=== PATIENT | female | born 1990 | race Caucasian/White ===

== ENCOUNTER 2020-11-24 17:30 | Emergency (ER) | payer OTHER, SELFPAY ==
--- NOTE | ~2020-11-24 | US_ITS ---
EXAMINATION: TRANSABDOMINAL AND TRANSVAGINAL PELVIC ULTRASOUND CLINICAL INFORMATION: Pelvic pain. COMPARISON: None. TECHNIQUE: Transabdominal and transvaginal ultrasound of the pelvis was performed using grayscale and color Doppler imaging techniques. FINDINGS: The uterus is anteverted and normal in size measuring 8.1 x 4.2 x 5.8 cm with a smooth surface contour and no discrete mass. The endometrial stripe is normal in thickness measuring 0.7 cm. There is no abnormal dilation of the uterine cavity. Small echogenic foci within the endometrial cavity are noted demonstrating vascularity, likely reflecting multiple polyps. These measure up to 5 mm (series US #1: Image 48/75). The right ovary is normal in size measuring 2.9 x 2.6 x 2.1 and demonstrates internal arterial and venous blood flow. The left ovary is normal in size measuring 2.3 x 2.1 x 1.9 and demonstrates internal arterial and venous blood flow. Functional cyst measures 1.6 x 1.2 x 1.5 cm. There is no pelvic free fluid. US/US transvaginal IMPRESSION: Functional left ovarian cyst. Tiny subcentimeter echogenic foci in the endometrial cavity with vascularity likely reflecting multiple polyps
--- NOTE | ~2020-11-24 | US_ITS ---
EXAMINATION: TRANSABDOMINAL AND TRANSVAGINAL PELVIC ULTRASOUND CLINICAL INFORMATION: Pelvic pain. COMPARISON: None. TECHNIQUE: Transabdominal and transvaginal ultrasound of the pelvis was performed using grayscale and color Doppler imaging techniques. FINDINGS: The uterus is anteverted and normal in size measuring 8.1 x 4.2 x 5.8 cm with a smooth surface contour and no discrete mass. The endometrial stripe is normal in thickness measuring 0.7 cm. There is no abnormal dilation of the uterine cavity. Small echogenic foci within the endometrial cavity are noted demonstrating vascularity, likely reflecting multiple polyps. These measure up to 5 mm (series US #1: Image 48/75). The right ovary is normal in size measuring 2.9 x 2.6 x 2.1 and demonstrates internal arterial and venous blood flow. The left ovary is normal in size measuring 2.3 x 2.1 x 1.9 and demonstrates internal arterial and venous blood flow. Functional cyst measures 1.6 x 1.2 x 1.5 cm. There is no pelvic free fluid. US/US pelvic complete IMPRESSION: Functional left ovarian cyst. Tiny subcentimeter echogenic foci in the endometrial cavity with vascularity likely reflecting multiple polyps
[2020-11-24 17:42] VITALS: BP 128/79; PULSE 89; RESP 16; TEMP 36.5; O2SAT 100; BMI 28.3
[2020-11-24 18:31] VITALS: BP 133/85; PULSE 81; RESP 16; TEMP 37.1; O2SAT 99
--- NOTE | 2020-11-24 19:40 | ED.ABDPAIN ---
HPI - Abdominal Pain General Chief Complaint: Abdominal Pain <Fifi Pineda NP - Last Filed: 11/24/20 21:25> Stated Complaint: Lower abdominal pain <BHAKTI Whitaker Last Filed: 11/24/20 21:25> Time Seen by Provider: 11/24/20 19:07 <Fifi Pineda NP - Last Filed: 11/24/20 21:25> Source: patient <Fifi Pineda NP - Last Filed: 11/24/20 21:25> Mode of arrival: ambulatory <BHAKTI Whitaker Last Filed: 11/24/20 21:25> Limitations: no limitations <BHAKTI Whitaker Last Filed: 11/24/20 21:25> History of Present Illness HPI narrative: [age] year old female previously healthy here with complaints of lower abdominal cramping left greater than right x2 weeks. No urinary symptoms, vaginal discharge, diarrhea, vomiting, fever, chills. Patient tested for STIs 1 week ago and negative. Patient is sexually active with 1 male partner. She is not on contraception, menses 9 days late this month. <Fifi Pineda NP - Last Filed: 11/24/20 21:25> Related Data Home Medications: Previous Rx's Medication Instructions Recorded ibuprofen 600 mg PO Q8H PRN #10 tab 11/24/20 <BHAKTI Whitaker Last Filed: 11/24/20 21:25> Allergies/Adverse Reactions: Allergies Allergy/AdvReac Type Severity Reaction Status Date / Time bacitracin [From CORTISPORIN] Allergy Severe SWELLING Unverified 04/05/20 19:13 hydrocortisone Allergy Severe SWELLING Unverified 04/05/20 19:13 [From CORTISPORIN] neomycin [From CORTISPORIN] Allergy Severe SWELLING Unverified 04/05/20 19:13 polymyxin B Allergy Severe SWELLING Unverified 04/05/20 19:13 [From CORTISPORIN] <BHAKTI Whitaker Last Filed: 11/24/20 21:25> Review of Systems Review of Systems Yes all other systems are reviewed and are negative <BHAKTI Whitaker Last Filed: 11/24/20 21:25> Constitutional: Reports no additional constitutional complaints, Denies body ache(s), Denies chills, Denies fever(s), Denies headache(s) and Denies weakness <Fifi Pineda NP - Last Filed: 11/24/20 21:25> Eyes: Reports no additional eye complaints and Denies change in vision <Fifi Pineda NP - Last Filed: 11/24/20 21:25> Reports system reviewed and no additional complaints, except as documented, Denies dizziness, Denies headache(s), Denies nasal congestion, Denies nasal discharge and Denies neck pain <Fifi Pineda NP - Last Filed: 11/24/20 21:25> Cardiovascular: Reports no additional cardiovascular complaints, Denies chest pain, Denies leg edema and Denies dyspnea <Fifi Pineda NP - Last Filed: 11/24/20 21:25> Respiratory: Reports no additional respiratory complaints, Denies cough and Denies dyspnea <Fifi Pineda NP - Last Filed: 11/24/20 21:25> Gastrointestinal: Reports no additional gastrointestinal complaints, Reports abdominal pain, Denies diarrhea, Denies nausea and Denies vomiting <Fifi Pineda NP - Last Filed: 11/24/20 21:25> Genitourinary: Reports no additional female genitourinary complaints, Denies hematuria, Denies dysuria, Denies pelvic pain, Denies flank pain, Denies urinary incontinence and Denies vaginal discharge <Fifi Pineda NP - Last Filed: 11/24/20 21:25> Musculoskeletal: Reports no additional musculoskeletal complaints, Denies back pain, Denies arthralgias, Denies joint swelling, Denies neck pain, Denies numbness and Denies tingling <Fifi Pineda NP - Last Filed: 11/24/20 21:25> Skin/Breast: Reports system reviewed and no additional complaints, except as docu and Denies rash <Fifi Pineda NP - Last Filed: 11/24/20 21:25> Reports system reviewed and no additional complaints, except as documented, Denies Abnormal speech present, Denies dizziness, Denies headache(s), Denies numbness, Denies tingling and Denies weakness <Fifi Pineda NP - Last Filed: 11/24/20 21:25> Physical Exam Vital Signs: Vital Signs: Last Vital Signs Temp 98.8 F 11/24/20 18:31 Pulse 65 11/24/20 21:38 Resp 16 11/24/20 21:38 BP 128/79 11/24/20 21:38 Pulse Ox 98 11/24/20 21:38 Body Mass Index 28.3 <Fifi Pineda NP - Last Filed: 11/24/20 21:25> Vital Signs: Last Vital Signs Temp 98.8 F 11/24/20 18:31 Pulse 65 11/24/20 21:38 Resp 16 11/24/20 21:38 BP 128/79 11/24/20 21:38 Pulse Ox 98 11/24/20 21:38 Body Mass Index 28.3 <Alicja Retana MD - Last Filed: 11/24/20 22:35> Const: General: cooperative, healthy appearing, comfortable and no acute distress <Fifi Pineda NP - Last Filed: 11/24/20 21:25> Orientation/consciousness: patient oriented x3 <Fifi Pineda NP - Last Filed: 11/24/20 21:25> Limitations: no limitations <Fifi Pineda NP - Last Filed: 11/24/20 21:25> HENMT: Head: Yes normal to inspection <Fifi Pineda NP - Last Filed: 11/24/20 21:25> Ears: hearing grossly normal bilaterally <Fifi Pineda NP - Last Filed: 11/24/20 21:25> General nose exam: Normal external nose present <Fifi Pineda NP - Last Filed: 11/24/20 21:25> Face and sinus: Yes normal facial exam <Fifi Pineda NP - Last Filed: 11/24/20 21:25> Mouth: Normal oral and palatal mucosa present <Fifi Pineda NP - Last Filed: 11/24/20 21:25> Throat: Yes posterior oropharynx normal <Fifi Pineda NP - Last Filed: 11/24/20 21:25> Eyes: General: appearance normal, both eyes and all related structures <Fifi Pineda NP - Last Filed: 11/24/20 21:25> Pupils: Equal, round and reactive pupils present <Fifi Pineda NP - Last Filed: 11/24/20 21:25> Neck: Neck: Yes normal visual inspection <Fifi Pineda NP - Last Filed: 11/24/20 21:25> Chest: Chest palpation & inspection: normal inspection of the chest <Fifi Pineda NP - Last Filed: 11/24/20 21:25> Resp: Effort & Inspection: normal respiratory effort <Fifi Pineda NP - Last Filed: 11/24/20 21:25> Auscultation: clear to auscultation bilaterally <Fifi Pineda NP - Last Filed: 11/24/20 21:25> Cardio: Rate: regular rate <Fifi Pineda NP - Last Filed: 11/24/20 21:25> Rhythm: regular rhythm <Fifi Pineda NP - Last Filed: 11/24/20 21:25> Peripheral pulses: Peripheral pulses 2+ throughout <Fifi Pineda NP - Last Filed: 11/24/20 21:25> GI: Inspection: Yes normal to inspection <Fifi Pineda NP - Last Filed: 11/24/20 21:25> Palpation (GI): Soft to palpation and Tenderness to palpation present (GI) (mild left pelvic, no rebound or guarding ) <Fifi Pineda NP - Last Filed: 11/24/20 21:25> Auscultation: normal bowel sounds <Fifi Pineda NP - Last Filed: 11/24/20 21:25> Back/Spine/Pelvis: Thoracic/Lumbar Spine: thoracic and lumbar spine normal to inspection <Fifi Pineda NP - Last Filed: 11/24/20 21:25> Skin: General skin exam: no rashes or lesions noted <Fifi Pineda NP - Last Filed: 11/24/20 21:25> Neuro: General: patient oriented x3, no focal motor deficits and normal sensation to monofilament <Fifi Pineda NP - Last Filed: 11/24/20 21:25> Cranial nerves: Yes Equal, round and reactive pupils present <Fifi Pineda NP - Last Filed: 11/24/20 21:25> Cognition (Neuro): normal cognition <Fifi Pineda NP - Last Filed: 11/24/20 21:25> Speech: No Abnormal speech present <Fifi Pineda NP - Last Filed: 11/24/20 21:25> Gait exam (Neuro): Normal gait present <Fifi Pineda NP - Last Filed: 11/24/20 21:25> Motor exam (neuro): 5/5 motor strength present throughout <Fifi Pineda NP - Last Filed: 11/24/20 21:25> Extrem: General: Yes normal to inspection <Fifi Pineda NP - Last Filed: 11/24/20 21:25> Course Course Course Narrative: 30 year old female here with lower abdominal pelvic pain left greater than right x2 weeks with no other associated symptoms. Recently tested for STIs and negative. Was late for her menses this month but did get it/ Will need labs, UA, urine , pelvic ultrasound. 2119-Labs unremarkable, UA negative. Recommended pelvic exam and STI testing but patient declined telling me she was tested recently and has had same partner for quite some time. Does not want re-testing. Sign out to Dr Retana pending US. <Fifi Pineda NP - Last Filed: 11/24/20 21:25> Ultrasound shows a small left ovarian cyst. I discussed the ultrasound with the patient, patient states she has an OBGYN and follow-up. Patient instructed to take ibuprofen. Otherwise patient doing well, hematology and chemistry unremarkable. <Alicja Retana MD - Last Filed: 11/24/20 22:35> MDM - Abdominal Pain MDM Narrative Medical decision making narrative: not likely appendicitis with no right lower abdominal pain, gradual onset of >2 weeks. considered UTI, ectopic , ovarian cyst and PID. <Fifi Pineda NP - Last Filed: 11/24/20 21:25> Medical Records Attestation: I reviewed the patient's medical records. <Fifi Pineda NP - Last Filed: 11/24/20 21:25> Lab Data Attestation: I reviewed the patient's lab results. <Fifi Pineda NP - Last Filed: 11/24/20 21:25> Result diagrams: : 11/24/20 19:53 11/24/20 19:53 <Fifi Pineda NP - Last Filed: 11/24/20 21:25> Labs: Lab Results 11/24/20 11/24/20 11/24/20 Range/Units 19:53 19:53 19:54 WBC 7.7 (4.8-10.8) X10*3/uL RBC 3.92 L (4.20-5.50) X10*6/uL Hgb 12.1 (12.0-16.0) g/dl Hct 36.2 L (37-47) % MCV 92.3 (80-98) fL MCH 30.9 (27.0-33.0) pg MCHC 33.4 (31.0-35.0) g/dl RDW 12.2 (11.0-16.0) % Plt Count 246 (160-400) X10*3/uL MPV 10.8 (9.4-12.3) fL Immature Gran % (Auto) 0.3 (0.0-0.4) % Neut % (Auto) 63.3 (45-73) % Lymph % (Auto) 28.3 (20-40) % [place] % (Auto) 6.5 (2-11) % Eos % (Auto) 1.6 (0-4) % Baso % (Auto) 0.0 (0-2) % Lymph # (Auto) 2.2 (1.2-4.9) X10*3/uL [place] # (Auto) 0.5 (0.1-1.2) X10*3/uL Eos # (Auto) 0.1 (0.0-0.4) X10*3/uL Baso # (Auto) 0.0 (0.0-0.2) X10*3/uL Abs Immat Gran (auto) 0.02 (0.00-0.03) X10*3/uL Absolute Neuts (auto) 4.9 (2.0-8.3) X10*3/uL Absolute Nucleated RBC 0.000 (0.0-0.012) X10*3/uL Nucleated RBC % (auto) 0.0 (0.0-0.2) /100WBC Sodium 140 (135-145) mmol/L Potassium 3.5 (3.3-5.1) mmol/L Chloride 105 (96-108) mmol/L Carbon Dioxide 29 (22-29) mmol/L Anion Gap 10 L (12-20) BUN 13 (9-16) mg/dL Creatinine 0.76 (0.5-1.4) mg/dL Estim Creat Clear Calc 100.3 Estimated GFR > 60 Random Glucose 78 (60-115) mg/dL Calcium 9.4 (8.4-10.2) mg/dL Urine Color YELLOW Urine Appearance CLEAR Urine pH 6.5 (5.0-8.0) Ur Specific [place] 1.020 (1.005-1.025) Urine Protein NEG (NEG-TRACE) MG/DL Urine Glucose (UA) NEG (NEG) MG/DL Urine Ketones 5 (NEG) MG/DL Urine Blood NEG (NEG) Urine Nitrite NEG (NEG) Ur Leukocyte Esterase NEG (NEG) Urine Test (NEGATIVE) 11/24/20 Range/Units 19:54 WBC (4.8-10.8) X10*3/uL RBC (4.20-5.50) X10*6/uL Hgb (12.0-16.0) g/dl Hct (37-47) % MCV (80-98) fL MCH (27.0-33.0) pg MCHC (31.0-35.0) g/dl RDW (11.0-16.0) % Plt Count (160-400) X10*3/uL MPV (9.4-12.3) fL Immature Gran % (Auto) (0.0-0.4) % Neut % (Auto) (45-73) % Lymph % (Auto) (20-40) % [place] % (Auto) (2-11) % Eos % (Auto) (0-4) % Baso % (Auto) (0-2) % Lymph # (Auto) (1.2-4.9) X10*3/uL [place] # (Auto) (0.1-1.2) X10*3/uL Eos # (Auto) (0.0-0.4) X10*3/uL Baso # (Auto) (0.0-0.2) X10*3/uL Abs Immat Gran (auto) (0.00-0.03) X10*3/uL Absolute Neuts (auto) (2.0-8.3) X10*3/uL Absolute Nucleated RBC (0.0-0.012) X10*3/uL Nucleated RBC % (auto) (0.0-0.2) /100WBC Sodium (135-145) mmol/L Potassium (3.3-5.1) mmol/L Chloride (96-108) mmol/L Carbon Dioxide (22-29) mmol/L Anion Gap (12-20) BUN (9-16) mg/dL Creatinine (0.5-1.4) mg/dL Estim Creat Clear Calc Estimated GFR Random Glucose (60-115) mg/dL Calcium (8.4-10.2) mg/dL Urine Color Urine Appearance Urine pH (5.0-8.0) Ur Specific [place] (1.005-1.025) Urine Protein (NEG-TRACE) MG/DL Urine Glucose (UA) (NEG) MG/DL Urine Ketones (NEG) MG/DL Urine Blood (NEG) Urine Nitrite (NEG) Ur Leukocyte Esterase (NEG) Urine Test NEGATIVE (NEGATIVE) <Fifi Pineda, SALES AND MARKETING ANALYST - Last Filed: 11/24/20 21:25> Lab Results 11/24/20 11/24/20 11/24/20 Range/Units 19:53 19:53 19:54 WBC 7.7 (4.8-10.8) X10*3/uL RBC 3.92 L (4.20-5.50) X10*6/uL Hgb 12.1 (12.0-16.0) g/dl Hct 36.2 L (37-47) % MCV 92.3 (80-98) fL MCH 30.9 (27.0-33.0) pg MCHC 33.4 (31.0-35.0) g/dl RDW 12.2 (11.0-16.0) % Plt Count 246 (160-400) X10*3/uL MPV 10.8 (9.4-12.3) fL Immature Gran % (Auto) 0.3 (0.0-0.4) % Neut % (Auto) 63.3 (45-73) % Lymph % (Auto) 28.3 (20-40) % [place] % (Auto) 6.5 (2-11) % Eos % (Auto) 1.6 (0-4) % Baso % (Auto) 0.0 (0-2) % Lymph # (Auto) 2.2 (1.2-4.9) X10*3/uL [place] # (Auto) 0.5 (0.1-1.2) X10*3/uL Eos # (Auto) 0.1 (0.0-0.4) X10*3/uL Baso # (Auto) 0.0 (0.0-0.2) X10*3/uL Abs Immat Gran (auto) 0.02 (0.00-0.03) X10*3/uL Absolute Neuts (auto) 4.9 (2.0-8.3) X10*3/uL Absolute Nucleated RBC 0.000 (0.0-0.012) X10*3/uL Nucleated RBC % (auto) 0.0 (0.0-0.2) /100WBC Sodium 140 (135-145) mmol/L Potassium 3.5 (3.3-5.1) mmol/L Chloride 105 (96-108) mmol/L Carbon Dioxide 29 (22-29) mmol/L Anion Gap 10 L (12-20) BUN 13 (9-16) mg/dL Creatinine 0.76 (0.5-1.4) mg/dL Estim Creat Clear Calc 100.3 Estimated GFR > 60 Random Glucose 78 (60-115) mg/dL Calcium 9.4 (8.4-10.2) mg/dL Urine Color YELLOW Urine Appearance CLEAR Urine pH 6.5 (5.0-8.0) Ur Specific [place] 1.020 (1.005-1.025) Urine Protein NEG (NEG-TRACE) MG/DL Urine Glucose (UA) NEG (NEG) MG/DL Urine Ketones 5 (NEG) MG/DL Urine Blood NEG (NEG) Urine Nitrite NEG (NEG) Ur Leukocyte Esterase NEG (NEG) Urine Test (NEGATIVE) 11/24/20 Range/Units 19:54 WBC (4.8-10.8) X10*3/uL RBC (4.20-5.50) X10*6/uL Hgb (12.0-16.0) g/dl Hct (37-47) % MCV (80-98) fL MCH (27.0-33.0) pg MCHC (31.0-35.0) g/dl RDW (11.0-16.0) % Plt Count (160-400) X10*3/uL MPV (9.4-12.3) fL Immature Gran % (Auto) (0.0-0.4) % Neut % (Auto) (45-73) % Lymph % (Auto) (20-40) % [place] % (Auto) (2-11) % Eos % (Auto) (0-4) % Baso % (Auto) (0-2) % Lymph # (Auto) (1.2-4.9) X10*3/uL [place] # (Auto) (0.1-1.2) X10*3/uL Eos # (Auto) (0.0-0.4) X10*3/uL Baso # (Auto) (0.0-0.2) X10*3/uL Abs Immat Gran (auto) (0.00-0.03) X10*3/uL Absolute Neuts (auto) (2.0-8.3) X10*3/uL Absolute Nucleated RBC (0.0-0.012) X10*3/uL Nucleated RBC % (auto) (0.0-0.2) /100WBC Sodium (135-145) mmol/L Potassium (3.3-5.1) mmol/L Chloride (96-108) mmol/L Carbon Dioxide (22-29) mmol/L Anion Gap (12-20) BUN (9-16) mg/dL Creatinine (0.5-1.4) mg/dL Estim Creat Clear Calc Estimated GFR Random Glucose (60-115) mg/dL Calcium (8.4-10.2) mg/dL Urine Color Urine Appearance Urine pH (5.0-8.0) Ur Specific [place] (1.005-1.025) Urine Protein (NEG-TRACE) MG/DL Urine Glucose (UA) (NEG) MG/DL Urine Ketones (NEG) MG/DL Urine Blood (NEG) Urine Nitrite (NEG) Ur Leukocyte Esterase (NEG) Urine Test NEGATIVE (NEGATIVE) <Alicja Retana MD - Last Filed: 11/24/20 22:35> Imaging Data US - abdomen: Radiologist's impression: FINDINGS: The uterus is anteverted and normal in size measuring 8.1 x 4.2 x 5.8 cm with a smooth surface contour and no discrete mass. The endometrial stripe is normal in thickness measuring 0.7 cm. There is no abnormal dilation of the uterine cavity. Small echogenic foci within the endometrial cavity are noted demonstrating vascularity, likely reflecting multiple polyps. These measure up to 5 mm (series US #1: Image 48/75). The right ovary is normal in size measuring 2.9 x 2.6 x 2.1 and demonstrates internal arterial and venous blood flow. The left ovary is normal in size measuring 2.3 x 2.1 x 1.9 and demonstrates internal arterial and venous blood flow. Functional cyst measures 1.6 x 1.2 x 1.5 cm. There is no pelvic free fluid. US/US transvaginal IMPRESSION: Functional left ovarian cyst. Tiny subcentimeter echogenic foci in the endometrial cavity with vascularity likely reflecting multiple polyps <Alicja Retana MD - Last Filed: 11/24/20 22:35> Discharge Plan Discharge Clinical Impression: Functional ovarian cysts <Fifi Pineda NP - Last Filed: 11/24/20 21:25> Patient Disposition: Home, Self-Care <Fifi Pineda NP - Last Filed: 11/24/20 21:25> Instructions: Ovarian Cyst (ED) <Fifi Pineda NP - Last Filed: 11/24/20 21:25> Additional Instructions: Please follow-up with your primary care physician tomorrow. If you have any worsening or new symptoms, please return to the emergency room or call 911 <Fifi Pineda NP - Last Filed: 11/24/20 21:25> Prescriptions: New ibuprofen 600 mg tablet 600 mg PO Q8H PRN (Reason: pain) Qty: 10 RF: 0 <Fifi Pineda NP - Last Filed: 11/24/20 21:25> [facility] Past Medical History Attestation statement: The following information was validated with the patient. <Fifi Pineda NP - Last Filed: 11/24/20 21:25> Source: old records reviewed and nursing notes reviewed <Fifi Pineda NP - Last Filed: 11/24/20 21:25> Medical History: Medical History Hives <Fifi Pineda NP - Last Filed: 11/24/20 21:25> Social History Social History: Social History Alcohol intake: never Smoking Status: Never smoker Use of substances other than those prescribed or required for medical reasons: Yes Substance Use Type: Marijuana Advance Directives: No Advance Directives Information Provided: Yes Patient : No <Fifi Pineda NP - Last Filed: 11/24/20 21:25>
[2020-11-24 20:01] LABS: MANUAL DIFF FLAG NO
[2020-11-24 20:06] LABS: Eosinophils Absolute Auto 0.1 X10*3/uL (0.0-0.4); Eosinophils Percent Auto 1.6 % (0-4); Hematocrit 36.2 % (37-47); Hemoglobin 12.1 g/dl (12.0-16.0); Imm Gran Abs Auto 0.02 X10*3/uL (0.00-0.03); Imm Gran Pct Auto 0.3 % (0.0-0.4); Lymphocytes Absolute Auto 2.2 X10*3/uL (1.2-4.9); Lymphocytes Percent Auto 28.3 % (20-40); Mean Corpuscular HGB Conc 33.4 g/dl (31.0-35.0); Mean Corpuscular Hemoglobin 30.9 pg (27.0-33.0); Mean Corpuscular Volume 92.3 fL (80-98); Mean Platelet Volume 10.8 fL (9.4-12.3); Monocytes Absolute Auto 0.5 X10*3/uL (0.1-1.2); Monocytes Percent Auto 6.5 % (2-11); Neutrophils Absolute Auto 4.9 X10*3/uL (2.0-8.3); Neutrophils Percent Auto 63.3 % (45-73); Platelet Count 246 X10*3/uL (160-400); Red Blood Count 3.92 X10*6/uL (4.20-5.50); Red Cell Distribution Width 12.2 % (11.0-16.0); White Blood Count 7.7 X10*3/uL (4.8-10.8)
[2020-11-24 20:08] LABS: Glucose Urine UA NEG (NEG); Leukocyte Esterase Urine NEG (NEG); Nitrite Urine NEG (NEG); PH 6.5 (5.0-8.0); Urine Blood NEG (NEG); Urine Ketones 5 MG/DL (NEG); Urine Protein NEG (NEG-TRACE)
[2020-11-24 20:11] LABS: Appearance Urine CLEAR; Color Urine YELLOW; UPreg QC Valid YES; Urine Pregnancy NEGATIVE (NEGATIVE)
[2020-11-24 20:30] LABS: Anion Gap 10 (12-20); Blood Urea Nitrogen 13 mg/dL (9-16); Calcium 9.4 mg/dL (8.4-10.2); Carbon Dioxide 29 mmol/L (22-29); Chloride 105 mmol/L (96-108); Creatinine Clr Calc Pharmacy 100.3; Estimated Glomerular Filt Rate > 60; Glucose Random 78 mg/dL (60-115); Potassium 3.5 mmol/L (3.3-5.1); Sodium 140 mmol/L (135-145)
[2020-11-24] MEDS: Ibuprofen 600 MG TABLET PO (20:59)
--- NOTE | 2020-11-24 21:37 | PC.NURSE ---
pt resting in bed, still reports 4/10 llq pain. pt has friend at bedside. pt awake and alert, ambulatory to bathroom with steady gait when necessary.
[2020-11-24 21:38] VITALS: BP 128/79; PULSE 65; RESP 16; O2SAT 98
--- NOTE | 2020-11-24 23:17 | PC.NURSE ---
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
--- NOTE | 2020-11-24 23:35 | PC.NURSE ---
pt understands to return for increased pain, fever or inability to keep fluids down.
== END 2020-11-24 23:36 | disposition home or self-care (01) ==
PROVIDERS: Nurse Practitioner Family; Emergency Provider Emergency Medicine; PCP Internal Medicine
DX: R10.30 Lower abdominal pain, unspecified (principal); N83.292 Other ovarian cyst, left side; F12.90 Cannabis use, unspecified, uncomplicated
CPT/HCPCS: 36415; 76830; 76856; 80048; 81003; 81025; 85025; 99284

== ENCOUNTER 2021-05-16 00:31 | Emergency (ER) | payer OTHER, SELFPAY ==
[2021-05-16 00:36] VITALS: BP 137/85; PULSE 89; RESP 16; TEMP 37.7; O2SAT 96; BMI 27.4
--- NOTE | 2021-05-16 00:42 | ED_ITS ---
HPI - Female Genitourinary General Chief complaint: Urogenital-Female Stated complaint: UTI/Fever Time Seen by Provider: 05/16/21 00:34 Source: patient Mode of arrival: ambulatory Limitations: no limitations History of Present Illness MD elicited complaint: dysuria and UTI Onset (ago): week(s) (1) Severity: mild Quality of pain: cramping Consistency: intermittent Urinary symptoms: Dysuria, Urgency and Frequency Exacerbating factors: urination Relieving factors: none Associated symptoms: fever (just today ), chills (just today) and nausea (just today) Treatment prior to arrival: OTC urinary analgesics Related Data Previous Rx's Medication Instructions Recorded ibuprofen 600 mg tablet 600 mg PO Q8H PRN #10 tab 11/24/20 cefuroxime axetil 500 mg tablet 500 mg PO BID 10 Days #20 tab 05/16/21 ondansetron 4 mg disintegrating 4 mg PO Q8H PRN #20 tab 05/16/21 tablet Allergies Allergy/AdvReac Type Severity Reaction Status Date / Time bacitracin [From CORTISPORIN] Allergy Severe SWELLING Verified 05/16/21 00:36 hydrocortisone Allergy Severe SWELLING Verified 05/16/21 00:36 [From CORTISPORIN] neomycin [From CORTISPORIN] Allergy Severe SWELLING Verified 05/16/21 00:36 polymyxin B Allergy Severe SWELLING Verified 05/16/21 00:36 [From CORTISPORIN] Review of Systems Review of Systems: Constitutional : pos Fever, pos Chills ENT/Mouth : No sore throat, No Rhinorrhea Eyes: No Eye Pain, No Swelling, No Redness Cardiovascular : No Chest Pain, No SOB Respiratory : No Cough, No Sputum, No Wheezing Gastrointestinal : pos Nausea, No Vomiting, No Diarrhea, No abdominal Pain Genitourinary : pos Dysuria, pos Urinary Frequency, No Hematuria, Musculoskeletal : No joint pain, No Myalgias, No Joint Swelling, no back pain Skin : No Skin Lesions, No rash Neuro : No Weakness, No Numbness, No Dizziness, No Headache Psych : No Anxiety/Panic, No Depression All other systems reviewed and are negative [facility] Past Medical History Attestation statement: The following information was validated with the patient. Medical History Hives Social History Social History Alcohol intake: never Substance Use Type: Marijuana Advance Directives: No Physical Exam Vital Signs: Vital Signs: Last Vital Signs Temp 99.8 F 05/16/21 00:36 Pulse 89 05/16/21 00:36 Resp 16 05/16/21 00:36 BP 137/85 05/16/21 00:36 Pulse Ox 96 05/16/21 00:36 Body Mass Index 27.4 Appearance: Alert. Oriented X3. No acute distress. Eyes: Pupils equal, round and reactive to light. ENT: Pharynx normal. normal TM bilaterally Neck: Normal inspection. Neck supple. CVS: Normal heart rate and rhythm. Pulses normal. Respiratory: No respiratory distress. Breath sounds normal. Abdomen: Soft and nontender. Back: no bilateral CVA ttp Skin: Skin warm and dry. Normal skin color. Normal skin turgor. Extremities: No lower extremity edema. Neuro: Oriented X 3. No motor deficit. No sensory deficit. Course Course Course Narrative: pos UA can tolerate PO stable for DC MDM - Female Genitourinary MDM Narrative Medical decision making narrative: 30 yo female with hx of chronic urticaria here with c/o urinary symptoms for 1 week trying to treat with OTC cranberry, today she noted nausea and subj fever/chills - did not take medications. At this time she has no vomiting, no CVA ttp will obtain UA, UPT, COVID swab. Provide supportive medications. Dispo per results and findings. Lab Data Labs: Lab Results 05/16/21 05/16/21 05/16/21 Range/Units 00:49 00:54 00:55 Urine Color YELLOW Urine Appearance HAZY Urine pH 5.5 (5.0-8.0) Ur Specific [place] 1.020 (1.005-1.025) Urine Protein TRACE (NEG-TRACE) MG/DL Urine Glucose (UA) NEG (NEG) MG/DL Urine Ketones NEG (NEG) MG/DL Urine Blood 1+ H (NEG) Urine Nitrite NEG (NEG) Ur Leukocyte Esterase 3+ H (NEG) Urine RBC 0-2 (0) /HPF Urine WBC 76-150 H (0-4) /HPF Ur Squamous Epith Cells 2+ /LPF Urine Bacteria TRACE /LPF Urine Test NEGATIVE (NEGATIVE) COVID-19 (SUSU) Negative (Negative) COVID-19 Clin Com See Note Discharge Plan Discharge Clinical Impression: Urinary tract infection Patient Disposition: Home, Self-Care Instructions: Urinary Tract Infection in Women (ED) Additional Instructions: return to ED for any worsening symptoms or concerns NEGATIVE FOR COVID Prescriptions: New ondansetron 4 mg tablet,disintegrating 4 mg PO Q8H PRN (Reason: nausea and vomiting) Qty: 20 RF: 0 cefuroxime axetil 500 mg tablet 500 mg PO BID 10 Days Qty: 20 RF: 0 No Action ibuprofen 600 mg tablet 600 mg PO Q8H PRN (Reason: pain) Qty: 10 RF: 0 Stand Alone Forms: Work/School Release
[2021-05-16] MEDS: Ibuprofen 600 MG TABLET PO (00:57)
[2021-05-16 01:00] LABS: Appearance Urine HAZY; Color Urine YELLOW; Glucose Urine UA NEG (NEG); Leukocyte Esterase Urine 3+ (NEG); Nitrite Urine NEG (NEG); PH 5.5 (5.0-8.0); UACC Culture Trigger YES; Urine Blood 1+ (NEG); Urine Ketones NEG (NEG); Urine Protein TRACE MG/DL (NEG-TRACE)
[2021-05-16 01:02] LABS: UPreg QC Valid YES; Urine Pregnancy NEGATIVE (NEGATIVE)
[2021-05-16 01:06] LABS: Bacteria Urine TRACE /LPF; RBC Urine 0-2 /HPF (0); Squamous Epithelial Cell Urine 2+ /LPF
[2021-05-16 01:10] LABS: COVID-19 Test Negative (Negative); IDNOW Serial# 9DD0AD1C
== END 2021-05-16 01:30 | disposition home or self-care (01) ==
PROVIDERS: Emergency Provider Emergency Medicine
DX: N39.0 Urinary tract infection, site not specified (principal); R50.9 Fever, unspecified; Z20.822 Contact with and (suspected) exposure to COVID-19
CPT/HCPCS: 36415; 81001; 81003; 81025; 87086; 87088; 87186; 87635; 99283; 99284

== ENCOUNTER 2023-01-01 16:06 | Emergency (ER) | payer OTHER, SELFPAY ==
--- NOTE | ~2023-01-01 | US_ITS ---
EXAMINATION: US PELVIS CLINICAL INFORMATION: Pelvic pain; the last menstrual period was on 12/29/2022. COMPARISON: None available. TECHNIQUE: Ultrasound of the pelvis is performed using both transabdominal and transvaginal transducers along with Doppler. Transvaginal imaging is performed due to inadequate visualization transabdominally. FINDINGS: Uterus: The uterus is anteverted and anteflexed. The uterus measures 10.3 x 4.8 x 6.3 cm. Nabothian cysts are seen within the cervix. The double wall endometrial thickness is 1.5 mm. A 7 x 5 x 7 mm endometrial polyp is seen. The uterus is smooth in contour and has normal myometrial echogenicity. No visible fibroid. Adnexa: Both ovaries are visualized. There is normal color flow to the adnexa. There is no ovarian torsion. There is a small amount of right adnexal free fluid. Right ovary measures 2.9 x 2.1 x 2.9 cm, volume 9.3 mL. The right ovary contains a 1.5 x 1.0 x 1.3 cm corpus luteum cyst. Left ovary measures 3.5 x 2.2 x 2.2 cm, volume 8.9 mL. The left ovary contains a 2.1 x 1.3 x 1.5 cm hemorrhagic cyst with characteristic internal reticulated contents. US/US pelvic and transvaginal IMPRESSION: 1. A 7 mm endometrial polyp is noted. This could represent a hyperplastic polyp, focal endometrial hyperplasia, a subendometrial fibroid or other neoplasm. Gynecology evaluation and management are recommended, with consideration for tissue sampling, if clinically indicated. 2. Nabothian cysts are seen within the cervix. 3. A 1.5 cm right ovarian corpus luteum cyst and a 2.1 cm left ovarian hemorrhagic cyst are of incidental note. 4. There is a small amount of nonspecific free fluid within the right adnexal region.
--- NOTE | 2023-01-01 16:15 | ED.FEMALEGU ---
HPI - Female Genitourinary General Chief complaint: Urogenital-Female Stated complaint: ? tampon stuck Time Seen by Provider: 01/01/23 17:23 Source: patient and RN notes reviewed Mode of arrival: ambulatory Limitations: no limitations History of Present Illness HPI Narrative: This is a 32-year-old female presenting to the emergency department as she believes that she may have left a tampon inside her. Patient reports that she had her menses last week and was not paying attention in noticed that she had 2 tampons inside of her vagina. She states that her menses ended 2 days ago but she is had some lower pelvic pressure since yesterday. She states that the pain was intermittent and had her partner check to see if she retained tampon, however there was not a tampon to be found. She states that she then had sexual intercourse. She states that the pelvic pain has not resolved and has become more consistent. No fevers, chills, rashes, chest pain, shortness of breath, abnormal vaginal discharge, bleeding, urinary frequency, urgency or dysuria. No concerns for STIs. No other complaints or concerns at this time. Related Data Previous Rx's Medication Instructions Recorded ibuprofen 600 mg tablet 600 mg PO Q8H PRN pain #10 tabs 11/24/20 cefuroxime axetil 500 mg tablet 500 mg PO BID 10 days #20 tabs 05/16/21 ondansetron 4 mg disintegrating 4 mg PO Q8H PRN nausea and 05/16/21 tablet vomiting #20 tabs ibuprofen 600 mg tablet 600 mg PO Q6H PRN pain #30 tabs 01/01/23 Allergies Allergy/AdvReac Type Severity Reaction Status Date / Time bacitracin [From CORTISPORIN] Allergy Severe SWELLING Verified 05/16/21 00:36 hydrocortisone Allergy Severe SWELLING Verified 05/16/21 00:36 [From CORTISPORIN] neomycin [From CORTISPORIN] Allergy Severe SWELLING Verified 05/16/21 00:36 polymyxin B Allergy Severe SWELLING Verified 05/16/21 00:36 [From CORTISPORIN] Review of Systems Review of Systems: Yes all other systems are reviewed and are negative Constitutional: Constitutional: Reports as per HPI [facility] Past Medical History Medical History Hives Social History Social History Alcohol intake: never Patient Tobacco Use Status: Never used Tobacco Smoked in Last 30 Days: No Use of substances other than those prescribed or required for medical reasons: No Substance Use Type: Marijuana Advance Directives: No Advance Directives Information Provided: No Patient : No Physical Exam Vital Signs: Vital Signs: Last Vital Signs Temp 98.2 F 01/01/23 20:04 Pulse 61 01/01/23 20:04 Resp 12 01/01/23 20:04 BP 132/82 01/01/23 20:04 Pulse Ox 100 01/01/23 20:04 O2 Del Method Room Air 01/01/23 20:04 BMI result Body Mass Index 26.5 Const: General: cooperative, comfortable and no acute distress Orientation/consciousness: patient oriented x3 Limitations: no limitations HEENT: Head: Yes normal to inspection, Yes normocephalic and Yes atraumatic Ears: hearing grossly normal bilaterally General nose exam: Normal external nose present Face and sinus: Yes normal facial exam Mouth: Normal oral and palatal mucosa present, oropharynx normal and moist mucous membranes Throat: Yes posterior oropharynx normal Eyes: General: appearance normal, both eyes and all related structures Eyelids: Yes eyelids normal Conjunctivae: conjunctivae normal Sclerae: sclerae normal Pupils: Equal, round and reactive pupils present EOM: EOMs intact bilaterally Neck: Neck: Yes normal visual inspection, Yes full ROM and Yes no lymphadenopathy Lymphatic: no lymphadenopathy noted Chest: Chest palpation & inspection: normal inspection of the chest Resp: Effort & Inspection: normal respiratory effort and able to speak in complete sentences Auscultation: clear to auscultation bilaterally, no crackles, no rales, no rhonchi and no wheezes Cardio: Rate: regular rate Rhythm: regular rhythm Heart sounds: S1 normal heart sound present and S2 normal heart sound present GI: Inspection: Yes normal to inspection : Other: Senior Automation Engineer was present during entire duration of pelvic examination. Pt has mild tenderness in the suprapubic region with bimanual examination. Scant thin white/clear vaginal discharge noted in the vaginal vault. No foreign body or tampon noted. External Female Exam: normal external appearance and normal appearance of the urethra Speculum Exam - Vagina: normal appearance of the vagina, normal palpation, normal vaginal discharge, not erythematous, no swelling and nontender Speculum Exam - Cervix: normal appearance of the cervix Bimanual exam- vagina & uterus: normal bimanual exam, normal palpation and uterine size normal Skin: General skin exam: no rashes or lesions noted Trauma: no lacerations or abrasions Wounds: no wounds Neuro: General: patient oriented x3 and moves all extremities Cranial nerves: Yes Equal, round and reactive pupils present Extrem: General: Yes normal to inspection Right upper extremity: normal to inspection Left upper extremity: normal to inspection Right lower extremity: normal to inspection Left lower extremity: normal to inspection Course Course Course Narrative: This is a rapid medical exam. deferred additional HPI, ROS, PE to primary provider. 32 yo with no known medical history here with complaints of retained tampon with lower cramping, bleeding resolved. Will need pelvic exam VSS Medical Decision Making Medical Decision Making [facility] Narrative: This is a 32-year-old female presenting to the emergency department for evaluation of suprapubic tenderness x 1 day. Patient is unsure if she left a tampon in her vagina two days ago. On examination, patient is afebrile, mildly hypertensive at 140/88. Mild tenderness to palpation suprapubically, no rebound or guarding. Abdomen is soft nontender. Pelvic examination performed with no tampon in vaginal vault. Scant thin yellow/thin vaginal discharge appears to be normal vaginal discharge. Vaginosis swabs collected and sent to lab. Mild suprapubic TTP, no RLQ pain, no rebound or guarding. US revealing cysts and fibroid. This could be causing her to have these symptoms. UA does not appear to be infected at this time. Labs unremarkable, no leukocytosis noted. Discussed these results with patient and advised to follow-up with OBGYN. Advised to call today for follow-up. Patient understands and agrees with plan. Given return precautions. No other complaints or concerns this time. Differential Diagnosis Differential Diagnoses: The differential diagnosis associated with the presentation includes ovarian cyst, ovarian torsion, foreign body, UTI Admission/Observation Consideration of admission/observation: Escalation of care including admission/observation considered Lab Data [facility] Lab Attestation statement: I reviewed the patient's lab results. 01/01/23 18:47 01/01/23 18:47 Labs: Lab Results 01/01/23 01/01/23 01/01/23 Range/Units 18:08 18:47 18:47 WBC 7.4 (4.8-10.8) X10*3/uL RBC 3.93 L (4.20-5.50) X10*6/uL Hgb 12.0 (12.0-16.0) g/dl Hct 35.8 L (37.0-47.0) % MCV 91.1 (80.0-98.0) fL MCH 30.5 (27.0-33.0) pg MCHC 33.5 (31.0-35.0) g/dl RDW 12.0 (11.0-16.0) % Plt Count 240 (160-400) X10*3/uL MPV 10.8 (9.4-12.3) fL Immature Gran % (Auto) 0.3 (0.0-0.4) % Neut % (Auto) 67.7 (45-73) % Lymph % (Auto) 25.0 (20-40) % [place] % (Auto) 5.4 (2-11) % Eos % (Auto) 1.6 (0-4) % Baso % (Auto) 0.0 (0-2) % Lymph # (Auto) 1.9 (1.2-4.9) X10*3/uL [place] # (Auto) 0.4 (0.1-1.2) X10*3/uL Eos # (Auto) 0.1 (0.0-0.4) X10*3/uL Baso # (Auto) 0.0 (0.0-0.2) X10*3/uL Abs Immat Gran (auto) 0.02 (0.00-0.03) X10*3/uL Absolute Neuts (auto) 5.0 (2.0-8.3) x10*3/uL Absolute Nucleated RBC 0.000 (0.0-0.012) X10*3/uL Nucleated RBC % (auto) 0.0 (0.0-0.2) /100WBC Sodium 138 (135-145) mmol/L Potassium 3.9 (3.3-5.1) mmol/L Chloride 105 (96-108) mmol/L Carbon Dioxide 26 (22-29) mmol/L Anion Gap 11 L (12-20) BUN 13 (9-16) mg/dL Creatinine 0.70 (0.5-1.4) mg/dL Estim Creat Clear Calc 103.6 Estimated GFR > 60 Random Glucose 98 (60-115) mg/dL Calcium 9.5 (8.4-10.2) mg/dL Urine Color Urine Appearance Urine pH (5.0-9.0) Ur Specific [place] (1.005-1.025) Urine Protein (Neg-Trace) mg/dL Urine Glucose (UA) (Negative) mg/dL Urine Ketones (Negative) mg/dL Urine Blood (Negative) Urine Nitrite (Negative) Ur Leukocyte Esterase (Negative) Urine RBC (0-2) /HPF Urine WBC (0-5) /HPF Ur Squamous Epith Cells (0-2) /HPF Urine Bacteria (None Seen) Hyaline Casts (0-2) /LPF Urine Test (NEGATIVE) Whitney species DNA Negative (Negative) Chlam trachomat DNA PCR (Not Detect.) Gardnerella DNA Probe Negative (Negative) N.gonorrhoeae DNA (PCR) (Not Detect.) Trichomonas DNA Probe Negative (Negative) 01/01/23 01/01/23 01/01/23 Range/Units 18:59 18:59 21:36 WBC (4.8-10.8) X10*3/uL RBC (4.20-5.50) X10*6/uL Hgb (12.0-16.0) g/dl Hct (37.0-47.0) % MCV (80.0-98.0) fL MCH (27.0-33.0) pg MCHC (31.0-35.0) g/dl RDW (11.0-16.0) % Plt Count (160-400) X10*3/uL MPV (9.4-12.3) fL Immature Gran % (Auto) (0.0-0.4) % Neut % (Auto) (45-73) % Lymph % (Auto) (20-40) % [place] % (Auto) (2-11) % Eos % (Auto) (0-4) % Baso % (Auto) (0-2) % Lymph # (Auto) (1.2-4.9) X10*3/uL [place] # (Auto) (0.1-1.2) X10*3/uL Eos # (Auto) (0.0-0.4) X10*3/uL Baso # (Auto) (0.0-0.2) X10*3/uL Abs Immat Gran (auto) (0.00-0.03) X10*3/uL Absolute Neuts (auto) (2.0-8.3) x10*3/uL Absolute Nucleated RBC (0.0-0.012) X10*3/uL Nucleated RBC % (auto) (0.0-0.2) /100WBC Sodium (135-145) mmol/L Potassium (3.3-5.1) mmol/L Chloride (96-108) mmol/L Carbon Dioxide (22-29) mmol/L Anion Gap (12-20) BUN (9-16) mg/dL Creatinine (0.5-1.4) mg/dL Estim Creat Clear Calc Estimated GFR Random Glucose (60-115) mg/dL Calcium (8.4-10.2) mg/dL Urine Color Yellow Urine Appearance Clear Urine pH 6.5 (5.0-9.0) Ur Specific [place] 1.020 (1.005-1.025) Urine Protein Negative (Neg-Trace) mg/dL Urine Glucose (UA) Negative (Negative) mg/dL Urine Ketones Negative (Negative) mg/dL Urine Blood Negative (Negative) Urine Nitrite Negative (Negative) Ur Leukocyte Esterase Trace H (Negative) Urine RBC 0-2 (0-2) /HPF Urine WBC 0-5 (0-5) /HPF Ur Squamous Epith Cells 0-2 (0-2) /HPF Urine Bacteria None Seen (None Seen) Hyaline Casts 0-2 (0-2) /LPF Urine Test NEGATIVE (NEGATIVE) Whitney species DNA (Negative) Chlam trachomat DNA PCR NOT DETECTED (Not Detect.) Gardnerella DNA Probe (Negative) N.gonorrhoeae DNA (PCR) NOT DETECTED (Not Detect.) Trichomonas DNA Probe (Negative) Independent Interpretation I performed an independent interpretation of an: Ultrasound Interpretation: EXAMINATION:? US PELVIS CLINICAL INFORMATION:? Pelvic pain; the last menstrual period was on 12/29/2022. COMPARISON: None available. TECHNIQUE: Ultrasound of the pelvis is performed using both transabdominal and transvaginal transducers along with Doppler. Transvaginal imaging is performed due to inadequate visualization transabdominally. FINDINGS: Uterus: The uterus is anteverted and anteflexed. The uterus measures 10.3 x 4.8 x 6.3 cm. Nabothian cysts are seen within the cervix. The double wall endometrial thickness is 1.5 mm. A 7 x 5 x 7 mm endometrial polyp is seen. The uterus is smooth in contour and has normal myometrial echogenicity. ? No visible fibroid. Adnexa: Both ovaries are visualized. There is normal color flow to the adnexa. There is no ovarian torsion. There is a small amount of right adnexal free fluid. Right ovary measures 2.9 x 2.1 x 2.9 cm, volume 9.3 mL. The right ovary contains a 1.5 x 1.0 x 1.3 cm corpus luteum cyst. Left ovary measures 3.5 x 2.2 x 2.2 cm, volume 8.9 mL. The left ovary contains a 2.1 x 1.3 x 1.5 cm hemorrhagic cyst with characteristic internal reticulated contents. US/US pelvic and transvaginal IMPRESSION: ? 1. A 7 mm endometrial polyp is noted. This could represent a hyperplastic polyp, focal endometrial hyperplasia, a subendometrial fibroid or other neoplasm. Gynecology evaluation and management are recommended, with consideration for tissue sampling, if clinically indicated. ? 2. Nabothian cysts are seen within the cervix. ? 3. A 1.5 cm right ovarian corpus luteum cyst and a 2.1 cm left ovarian hemorrhagic cyst are of incidental note. ? 4. There is a small amount of nonspecific free fluid within the right adnexal region. Dictated By: Matt Laura MD Signed By: <Electronically signed by Matt Laura MD in OV> 01/01/233 DD/ 21 TD/TT:? Topper Packer: CARMEN Radiology Impression Discussion of test interpretation with radiology: I have reviewed the radiologist's reading. External Record Review External record reviewed: Inpatient record, Office record, Outpatient record, Prior outpatient labs, Prior outpatient radiology, Primary care record and Outside ED record Discharge Plan Discharge Clinical Impression: Abdominal pain, Ovarian cyst Patient Disposition: Home, Self-Care Instructions: Abdominal Pain (ED) Additional Instructions: Your Ultrasound shows a endometrial polyp. It also revealed multiple cysts. Please follow up with your OBGYN. Call tomorrow to make an appointment. We will call with any abnormal test results. Take ibuprofen and drink plenty of fluids. Heating pads can help with pain. If any new or worsening symptoms occur, including fevers, chills, worsening abdominal pain, please return for re-evaluation. Prescriptions: New ibuprofen 600 mg tablet 600 mg PO Q6H PRN (Reason: pain) Qty: 30 0RF No Action ibuprofen 600 mg tablet 600 mg PO Q8H PRN (Reason: pain) Qty: 10 0RF ondansetron 4 mg tablet,disintegrating 4 mg PO Q8H PRN (Reason: nausea and vomiting) Qty: 20 0RF cefuroxime axetil 500 mg tablet 500 mg PO BID 10 Days Qty: 20 0RF Interventions: ED Discharge Assessment Last Done: 01/01/23 23:42 Discharge Date/Time: 01/01/23 23:42
[2023-01-01 16:16] VITALS: BP 140/88; PULSE 98; RESP 18; TEMP 36.3; O2SAT 99; BMI 26.5
[2023-01-01 18:10] VITALS: BP 134/93; PULSE 73; RESP 16; TEMP 36.8; O2SAT 98
[2023-01-01 18:50] LABS: MANUAL DIFF FLAG NO
[2023-01-01 18:51] LABS: Eosinophils Absolute Auto 0.1 X10*3/uL (0.0-0.4); Eosinophils Percent Auto 1.6 % (0-4); Hematocrit 35.8 % (37.0-47.0); Imm Gran Abs Auto 0.02 X10*3/uL (0.00-0.03); Imm Gran Pct Auto 0.3 % (0.0-0.4); Lymphocytes Absolute Auto 1.9 X10*3/uL (1.2-4.9); Mean Corpuscular HGB Conc 33.5 g/dl (31.0-35.0); Mean Corpuscular Hemoglobin 30.5 pg (27.0-33.0); Mean Corpuscular Volume 91.1 fL (80.0-98.0); Mean Platelet Volume 10.8 fL (9.4-12.3); Monocytes Absolute Auto 0.4 X10*3/uL (0.1-1.2); Monocytes Percent Auto 5.4 % (2-11); Neutrophils Percent Auto 67.7 % (45-73); Platelet Count 240 X10*3/uL (160-400); Red Blood Count 3.93 X10*6/uL (4.20-5.50); White Blood Count 7.4 X10*3/uL (4.8-10.8)
[2023-01-01 19:06] LABS: Anion Gap 11 (12-20); Blood Urea Nitrogen 13 mg/dL (9-16); Calcium 9.5 mg/dL (8.4-10.2); Carbon Dioxide 26 mmol/L (22-29); Chloride 105 mmol/L (96-108); Creatinine Clr Calc Pharmacy 103.6; Estimated Glomerular Filt Rate > 60; Glucose Random 98 mg/dL (60-115); Potassium 3.9 mmol/L (3.3-5.1); Sodium 138 mmol/L (135-145)
[2023-01-01 19:09] LABS: Appearance Urine Clear; Color Urine Yellow; Glucose Urine UA Negative (Negative); Leukocyte Esterase Urine Trace (Negative); Nitrite Urine Negative (Negative); PH 6.5 (5.0-9.0); UMIC TRIGGER UACC YES; Urine Blood Negative (Negative); Urine Ketones Negative (Negative); Urine Protein Negative (Neg-Trace)
[2023-01-01 19:10] LABS: UPreg QC Valid YES; Urine Pregnancy NEGATIVE (NEGATIVE)
[2023-01-01 19:11] LABS: Bacteria Urine None Seen (None Seen); Hyaline Casts Urine 0-2 /LPF (0-2); RBC Urine 0-2 /HPF (0-2); Squamous Epithelial Cell Urine 0-2 /HPF (0-2); WBC Urine 0-5 /HPF (0-5)
[2023-01-01 20:04] VITALS: BP 132/82; PULSE 61; RESP 12; TEMP 36.8; O2SAT 100
--- NOTE | 2023-01-01 23:40 | PC.NURSE ---
Pt aox4 resting at the bedside in no apparent distress. Discharge instructions reviewed with pt. Pt verbalizes understanding. Declines vitals at this time. Ambulatory with steady gait at discharge.
[2023-01-02 00:47] LABS: CT PCR NOT DETECTED (Not Detect.); NG PCR NOT DETECTED (Not Detect.)
[2023-01-02 09:36] LABS: BV Int Neg Control Negative (Negative); BV Int Pos Control Positive (Positive)
== END 2023-01-01 23:42 | disposition home or self-care (01) ==
PROVIDERS: Physician Assistant Medical; Emergency Provider Emergency Medicine Emergency Medical Services; PCP Internal Medicine
DX: N83.202 Unspecified ovarian cyst, left side (principal); R10.2 Pelvic and perineal pain; Z79.899 Other long term (current) drug therapy
CPT/HCPCS: 0353U; 36415; 76830; 76856; 80048; 81001; 81025; 85025; 87480; 87510; 87660; 99284

== ENCOUNTER 2023-10-06 18:14 | Emergency (ER) | payer OTHER, SELFPAY ==
[2023-10-06 18:16] VITALS: BP 149/83; PULSE 96; RESP 18; TEMP 37.3; O2SAT 98; BMI 26.5
--- NOTE | 2023-10-06 18:54 | MHC.EDTECH ---
PATIENT RSV/COVID SWAB AND STREAP SWAB COLLECTED AND SENT TO LAB .
[2023-10-06 19:06] LABS: IDNOW Serial# 08D9AD1C
[2023-10-06 19:07] LABS: Strep A Nucleic Acid Negative (Negative)
[2023-10-06 19:33] LABS: Influenza A PCR NEGATIVE (Negative); Influenza B PCR NEGATIVE (Negative); Resp Syncy Virus RNA Qual PCR NEGATIVE (Negative); SARS COV2 PCR INHOUSE NEGATIVE (Negative)
--- NOTE | 2023-10-06 22:26 | ED.URI ---
HPI - URI/Sore Throat General Chief Complaint: Upper Respiratory Symptoms Stated Complaint: throat pain/fever Time Seen by Provider: 10/06/23 22:21 Source: patient Mode of arrival: ambulatory Limitations: no limitations History of Present Illness HPI Narrative: Patient otherwise healthy c/o sore throat fever body since earlier today patient's brother was diagnosed with strep last week no cough no shortness of breath Related Data Previous Rx's Medication Instructions Recorded ibuprofen 600 mg tablet 600 mg PO Q8H PRN pain #10 tabs 11/24/20 cefuroxime axetil 500 mg tablet 500 mg PO BID 10 days #20 tabs 05/16/21 ondansetron 4 mg disintegrating 4 mg PO Q8H PRN nausea and 05/16/21 tablet vomiting #20 tabs ibuprofen 600 mg tablet 600 mg PO Q6H PRN pain #30 tabs 01/01/23 cefuroxime axetil 500 mg tablet 500 mg PO BID 7 days #14 tabs 10/06/23 Allergies Allergy/AdvReac Type Severity Reaction Status Date / Time bacitracin [From CORTISPORIN] Allergy Severe SWELLING Verified 05/16/21 00:36 hydrocortisone Allergy Severe SWELLING Verified 05/16/21 00:36 [From CORTISPORIN] neomycin [From CORTISPORIN] Allergy Severe SWELLING Verified 05/16/21 00:36 polymyxin B Allergy Severe SWELLING Verified 05/16/21 00:36 [From CORTISPORIN] levofloxacin Allergy Numbness Verified 10/06/23 22:54 Review of Systems Review of Systems: Yes all other systems are reviewed and are negative PMFSH Past Medical History Medical History Hives Social History Social History Alcohol intake: never Patient Tobacco Use Status: Never used Tobacco Substance Use Type: Marijuana Advance Directives: No Advance Directives Information Provided: No Physical Exam Vital Signs: Vital Signs: Last Vital Signs Temp 98.2 F 10/06/23 22:39 Pulse 85 10/06/23 22:39 Resp 16 10/06/23 22:39 BP 121/81 10/06/23 22:39 Pulse Ox 100 10/06/23 22:39 O2 Del Method Room Air 10/06/23 22:39 BMI result Body Mass Index 26.5 Appearance: Alert. Oriented X3. No acute distress. Eyes: PERRLA, No Nystagmus ENT: Pharynx inflamed been no exudates Oral Mucosa moist Neck: Normal inspection. Neck supple. CVS: Normal heart rate and rhythm. Pulses normal. Respiratory: No respiratory distress. Equal air entry bilateral, Abdomen: Soft and nontender. Bowel sounds are present, Skin: Skin warm and dry. Normal skin color. Normal skin turgor. Medications Administered Discontinued Medications Generic Name Dose Route Start Last Admin Trade Name Freq PRN Reason Stop Dose Admin Cefuroxime Axetil 500 mg 10/06/23 22:36 10/06/23 22:55 Cefuroxime Axetil 500 Mg Tablet PO 10/06/23 22:37 500 mg ONCE ONE Administration Medical Decision Making Medical Decision Making [facility] Narrative: Patient with clinically strep pharyngitis with prescribed Ceftin Lab Data [facility] Lab Attestation statement: I reviewed the patient's lab results. Labs: Lab Results 10/06/23 10/06/23 Range/Units 18:51 18:52 Influenza Type A (PCR) NEGATIVE (Negative) Influenza Type B (PCR) NEGATIVE (Negative) RSV RNA Qual (PCR) NEGATIVE (Negative) SARS-CoV-2 RNA (RT-PCR) NEGATIVE (Negative) S. pyogenes GrpA [place] Negative (Negative) Discharge Plan Discharge Clinical Impression: Pharyngitis Patient Disposition: Home, Self-Care Instructions: Pharyngitis (ED) Additional Instructions: Likely has strep pharyngitis Your test was strep, COVID, flu is negative Take antibiotic as prescribed Tylenol/Motrin for pain/fever Prescriptions: New cefuroxime axetil 500 mg tablet 500 mg PO BID 7 Days Qty: 14 0RF No Action ibuprofen 600 mg tablet 600 mg PO Q8H PRN (Reason: pain) Qty: 10 0RF ondansetron 4 mg tablet,disintegrating 4 mg PO Q8H PRN (Reason: nausea and vomiting) Qty: 20 0RF cefuroxime axetil 500 mg tablet 500 mg PO BID 10 Days Qty: 20 0RF ibuprofen 600 mg tablet 600 mg PO Q6H PRN (Reason: pain) Qty: 30 0RF Stand Alone Forms: Work/School Release Discharge Date/Time: 10/06/23 23:17
[2023-10-06 22:39] VITALS: BP 121/81; PULSE 85; RESP 16; TEMP 36.8; O2SAT 100
[2023-10-06] MEDS: cefuroxime axetiL 500 MG TABLET PO (22:55)
== END 2023-10-06 23:17 | disposition home or self-care (01) ==
PROVIDERS: Emergency Provider Internal Medicine; PCP Internal Medicine
DX: J02.9 Acute pharyngitis, unspecified (principal); R50.9 Fever, unspecified; Z79.899 Other long term (current) drug therapy; Z11.52 Encounter for screening for COVID-19; Z20.822 Contact with and (suspected) exposure to COVID-19
CPT/HCPCS: 0241U; 87651; 99282; 99283